=== PATIENT | female | born 1945 | race Caucasian/White ===

== ENCOUNTER 2017-12-08 12:42 | Emergency (ER) | payer OTHER ==
[~2017-12-08] VITALS: Ht 162.6 cm; Wt 82.8 kg
[~2017-12-08 12:42] MED LIST: CALCIUM 500 MG1 EACH PO; ERGOCALCIF50000 UNIT PO; GLUCOPHAGE500 MG PO; LOFIBRA,TRIGLI160 MG PO; LORTAB 5-325 M1 EACH PO; MAGNESIUM400 M1 PO; MOBIC7.5 MG PO; OMEGA 3 500 SO1 EACH PO; PROAIR HFA8.5 GM IH; RELAFEN750 MG PO; SPIRIVA1 INHALATI IH; SYMBICORT60 INHALAT IH; ULTRAM50 MG PO
[2017-12-08] MEDS ORDERED: ANORO ELLIPTA1 EACH IH (13:33)
[2017-12-08] MEDS ORDERED: BUDESONIDE EC3 MG PO (13:35)
[2017-12-08] MEDS ORDERED: LYRICA50 MG PO (13:35)
[2017-12-08 15:42] VITALS: BP 127/70
== END 2017-12-08 15:43 | disposition home or self-care (01) ==
LOC: EME 12:42
DX: M79.661 Pain in right lower leg (principal); D17.23 Benign lipomatous neoplasm of skin and subcutaneous tissue of right leg; R25.2 Cramp and spasm; Z86.718 Personal history of other venous thrombosis and embolism; I83.91 Asymptomatic varicose veins of right lower extremity; J44.9 Chronic obstructive pulmonary disease, unspecified; Z79.84 Long term (current) use of oral hypoglycemic drugs; F17.200 Nicotine dependence, unspecified, uncomplicated
CPT/HCPCS: 93971; 99281; 99284